=== PATIENT | female | born 1960 | race Hispanic/Latino ===

== ENCOUNTER 2018-11-24 23:54 | Emergency (ER) | payer OTHER ==
[2018-11-25] MEDS ORDERED: DIAZEPAM 5 MG TABLET ONE (00:16)
[2018-11-25] MEDS ORDERED: KETOROLAC TROMETHAMINE 30MG/ML ONE (00:16)
[2018-11-25] MEDS ORDERED: HYDROCODONE/ACETAMINOPHEN 10/325 MG TAB ONE (00:17)
== END 2018-11-25 01:41 | disposition home or self-care (01) ==
LOC: EDH 23:54
DX: S39.012A Strain of muscle, fascia and tendon of lower back, initial encounter (principal); Z72.0 Tobacco use; X50.1XXA Overexertion from prolonged static or awkward postures, initial encounter; Y93.89 Activity, other specified; Y92.89 Other specified places as the place of occurrence of the external cause; Y99.8 Other external cause status
CPT/HCPCS: 96372; 99283; J1885

== ENCOUNTER 2020-09-08 11:23 | Emergency (ER) | payer OTHER, SELFPAY ==
[~2020-09-08] VITALS: Ht 160 cm; Wt 70.3 kg
[2020-09-08 11:25] VITALS: BP 147/68
[2020-09-08 12:12] LABS: BASOPHILS % (AUTO) 0.8 % (0.0-5.0); EOSINOPHILS % (AUTO) 0.8 % (0.0-8.0); HEMATOCRIT 42.3 % (36-48); LYMPHOCYTES % (AUTO) 30.8 % (21.0-51.0); MEAN CORPUSCULAR HEMOGLOBIN 26.4 pg (27.0-33.0); MEAN CORPUSCULAR HGB CONC 32.4 g/dL (32.0-36.0); MEAN CORPUSCULAR VOLUME 81.5 fL (79-99); MONOCYTES % (AUTO) 5.4 % (3.0-13.0); PLATELET COUNT (AUTO) 231 K/uL (130-400); RED BLOOD CELL COUNT(AUTO) 5.19 MIL/uL (4.00-5.50); RED CELL DISTRIBUTION WIDTH 16.3 % (11.0-15.5); WHITE BLOOD COUNT (AUTO) 10.6 K/uL (4.8-10.8)
[2020-09-08 12:22] LABS: CARBON DIOXIDE 31 mmol/L (21-32); CHLORIDE 109 mmol/L (101-111); CREATININE 0.6 mg/dL (0.5-1.5); GLOMERULAR FILTR. RATE CALC 108 mL/min (>60); GLUCOSE,RANDOM 94 mg/dL (70-105); POTASSIUM 5.8 mmol/L (3.5-5.1); SODIUM SERUM 143 mmol/L (136-145); UREA NITROGEN, BLOOD 17 mg/dL (7-18)
[2020-09-08 12:37] LABS: ALANINE AMINOTRANSFERASE 21 U/L (12-78); ALBUMIN 3.5 g/dL (3.5-5.0); ASPARTATE AMINOTRANSFERASE 23 U/L (10-37); BILIRUBIN,TOTAL 0.4 mg/dL (0.2-1.0); CREATINE KINASE, TOTAL 70 U/L (21-232); MYOGLOBIN 32 ng/mL (10-92); TOTAL PROTEIN, SERUM 7.4 g/dL (6.0-8.3); TROPONIN I < 0.04 ng/mL (0.00-0.06)
[2020-09-08 12:55] VITALS: BP 156/57
[2020-09-08 13:00] LABS: APPEARANCE,URINE Turbid (CLEAR); BILIRUBIN,URINE Negative (NEGATIVE); COLOR,URINE Yellow (YELLOW); GLUCOSE, URINE (UA) Negative (NEGATIVE); KETONES,URINE Negative (NEGATIVE); LEUKOCYTE ESTERASE ,URINE Negative (NEGATIVE); NITRATE,URINE Negative (NEGATIVE); OCCULT BLOOD,URINE Negative (NEGATIVE); PROTEIN,URINE Negative (NEGATIVE); UROBILINOGEN,URINE 0.2 mg/dL (0.2-1.0)
[2020-09-08 13:43] LABS: BACTERIA,URINE None Seen /HPF (None Seen); RBC,URINE 0-1 /HPF (0-1); SQUAMOUS EPITHELIAL CELL,UR Few /HPF (0-2); WBC,URINE 0-1 /HPF (0-1)
[2020-09-08 13:44] LABS: AMORPHOUS SEDIMENT,UR Moderate /LPF (None Seen)
[2020-09-08 15:08] VITALS: BP 134/68
[2020-09-08] MEDS ORDERED: 0.9%NACL 1000ML 1,000 ML IV SCH (15:30)
[2020-09-08] MEDS ORDERED: KETOROLAC 60 MG VIAL (30MG/ML) IM ONE (15:30)
[2020-09-08] MEDS ORDERED: KETOROLAC 30MG VIAL (30MG/ML) IV ONE (15:45)
[2020-09-08] MEDS ORDERED: NAPR-1180 PO (15:52)
[2020-09-08] MEDS ORDERED: GABA300S PO (16:04)
[2020-09-08] MEDS ORDERED: ALEN70SO3 PO (16:04)
[2020-09-08 16:21] VITALS: BP 155/66
== END 2020-09-08 16:40 | disposition home or self-care (01) ==
LOC: EDH 11:23
DX: R42 Dizziness and giddiness (principal); T42.6X5A Adverse effect of other antiepileptic and sedative-hypnotic drugs, initial encounter; M81.0 Age-related osteoporosis without current pathological fracture; M19.90 Unspecified osteoarthritis, unspecified site; Y92.89 Other specified places as the place of occurrence of the external cause
CPT/HCPCS: 36415; 80053; 81001; 82550; 83874; 83880; 84484; 85025; 93005; 96361; 96374; 99284; J1885; J7030

== ENCOUNTER 2021-08-02 16:35 | Emergency (ER) | payer OTHER, SELFPAY ==
[~2021-08-02] VITALS: Ht 157.5 cm; Wt 72.6 kg
[~2021-08-02 16:35] MED LIST: ALEN70SO4 PO; GABA300S PO; NAPR-1180 PO
[2021-08-02] MEDS ORDERED: ACETAMINOPHEN 500 MG TABLET ONE (16:40)
[2021-08-02 17:09] VITALS: BP 156/74
[2021-08-02] MEDS ORDERED: IBUP-2070 PO (18:29)
[2021-08-02] MEDS ORDERED: TETANUS/DIPHTHERIA TOXOID [ADULT] 0.5 ML VIAL IM ONE (18:30)
== END 2021-08-02 19:38 | disposition home or self-care (01) ==
LOC: EDH 16:35
DX: S61.011A Laceration without foreign body of right thumb without damage to nail, initial encounter (principal); M25.531 Pain in right wrist; M79.644 Pain in right finger(s); M19.90 Unspecified osteoarthritis, unspecified site; M81.0 Age-related osteoporosis without current pathological fracture; Z79.1 Long term (current) use of non-steroidal anti-inflammatories (NSAID); Z79.899 Other long term (current) drug therapy; Z90.49 Acquired absence of other specified parts of digestive tract; X58.XXXA Exposure to other specified factors, initial encounter; Y93.89 Activity, other specified; Y92.89 Other specified places as the place of occurrence of the external cause; Y99.8 Other external cause status
CPT/HCPCS: 73110; 73130; 90471; 90714

== ENCOUNTER 2022-05-04 12:18 | Emergency (ER) | payer OTHER ==
[~2022-05-04] VITALS: Ht 160 cm; Wt 74.8 kg
[~2022-05-04 12:18] MED LIST changes: +IBUP-2070 PO
[2022-05-04 12:44] LABS: HEMATOCRIT 40.4 % (36-48); MEAN CORPUSCULAR HEMOGLOBIN 25.1 pg (27.0-33.0); MEAN CORPUSCULAR HGB CONC 31.7 g/dL (32.0-36.0); MEAN CORPUSCULAR VOLUME 79.4 fL (79-99); RED BLOOD CELL COUNT(AUTO) 5.09 MIL/uL (4.00-5.50); RED CELL DISTRIBUTION WIDTH 15.8 % (11.0-15.5); WHITE BLOOD COUNT (AUTO) 10.2 K/uL (4.8-10.8)
[2022-05-04 12:55] LABS: CREATININE 0.7 mg/dL (0.5-1.5)
[2022-05-04 13:00] LABS: ALBUMIN 3.5 g/dL (3.5-5.0); TOTAL PROTEIN, SERUM 7.7 g/dL (6.0-8.3)
[2022-05-04] MEDS ORDERED: KETOROLAC 60 MG VIAL (30MG/ML) IM ONE (13:00)
[2022-05-04] MEDS ORDERED: CYCLOBENZAPRINE HCL 10 MG TABLET PO ONE (13:00)
[2022-05-04] MEDS ORDERED: SOLU-MEDROL 125MG VIAL IVP ONE (13:00)
[2022-05-04] MEDS ORDERED: MORPHINE 4 MG SYG IVP ONE (14:30)
[2022-05-04] MEDS ORDERED: ONDANSETRON 4MG INJ IVP ONE (14:30)
[2022-05-04] MEDS ORDERED: CYCL10TA16 PO (15:54)
[2022-05-04] MEDS ORDERED: METH4TAB3 PO (15:54)
[2022-05-04 16:10] VITALS: BP 126/53
== END 2022-05-04 16:09 | disposition home or self-care (01) ==
LOC: EDH 12:18
DX: S39.012A Strain of muscle, fascia and tendon of lower back, initial encounter (principal); Z90.710 Acquired absence of both cervix and uterus; Z79.1 Long term (current) use of non-steroidal anti-inflammatories (NSAID); Z79.899 Other long term (current) drug therapy; X58.XXXA Exposure to other specified factors, initial encounter; Y93.89 Activity, other specified; Y92.89 Other specified places as the place of occurrence of the external cause; Y99.8 Other external cause status
CPT/HCPCS: 99285; 96374; 72131; 96375; 80053; 85027; 36415; 96372; J2930; J2405; J2270; J1885

== ENCOUNTER 2024-04-30 18:12 | Emergency (ER) | payer OTHER, SELFPAY ==
[~2024-04-30] VITALS: Ht 157.5 cm; Wt 76.2 kg
[~2024-04-30 18:12] MED LIST changes: +CYCL10TA16 PO; -GABA300S PO; +GABA300S3 PO; +METH4TAB3 PO
--- NOTE | 2024-04-30 18:23 | ERN ---
ED Note History of Present Illness Stated Complaint: DIZZY Chief Complaint: Dizzy/Light Headed Time Seen by MD: 18:14 Dictation: PATIENT IS A 63-YEAR-OLD FEMALE COMING IN TODAY WHO COMPLAINTS OF HAVING DIZZINESS VERTIGO WORSE WHEN SHE TURNS HER HEAD ONSET WAS APPROXIMATE 2 HOURS PRIOR TO ARRIVAL. SHE STATES SHE HAD BEEN WASHING TV WHEN SHE STOOD UP AND NOTICED THE ROOM WAS SPINNING. SHE DENIES ANY CHEST PAIN BACK PAIN NO HEADACHE. SHE HAS HAD MILD DIZZINESS IN THE PAST BUT STATES NOTHING THIS SEVERE. Allergies: Coded Allergies: No Allergy Information Available (Verified Allergy, Unknown, 09/08/20) No Known Drug Allergies (Unverified Allergy, Unknown, 05/04/22) Home Meds Active Scripts Cyclobenzaprine HCl (Flexeril) 10 Mg Tab, 5 MG PO TID for 3 Days, #9 TAB Prov:RICARDO FINNEY MD 05/04/22 Methylprednisolone (Medrol) 4 Mg Tab.ds.pk, 4 MG PO AD for 6 Days, #1 PACK Prov:RICARDO FINNEY MD 05/04/22 Ibuprofen (Ibuprofen) 600 Mg Tablet, 600 MG PO Q6H PRN for PAIN, #15 TAB Prov:ARLINE WEBB ICT HELP DESK TECHNICIAN 08/02/21 Naproxen (Naprosyn) 500 Mg Tablet, 500 MG PO BIDPC for 7 Days, #14 TAB 0 Refills Prov:ZACK HESS MD 09/08/20 Reported Medications Gabapentin (Gabapentin) 300 Mg/6 Ml Solution, 300 MG PO TID, ML 09/08/20 Alendronate Sodium (Alendronate Sodium) 70 Mg/75 Ml Solution, 70 MG PO QWEEK, ML 09/08/20 Past Medical History Past Medical History: Arthritis Additional Past Medical Hx: OSTEOPOROSIS Surgical History: Hysterectomy, Surgical History Other: OVARIAN TUMOR REMOVED Family History: HTN Social History: Negative, Lives with family History: Not Applicable RN Note Reviewed/Agreed w/PFSH: Yes Review of System Dictation CONSTITUTIONAL: NEGATIVE EXCEPT FOR HPI HEAD/FACE: NEGATIVE EXCEPT FOR HPI EENT: NEGATIVE EXCEPT FOR HPI RESPIRATORY: NEGATIVE EXCEPT FOR HPI GASTROINTESTINAL/ABDOMINAL: NEGATIVE EXCEPT FOR HPI GENITOURINARY: NEGATIVE EXCEPT FOR HPI MUSCULOSKELETAL: NEGATIVE EXCEPT FOR HPI INTEGUMENTARY: NEGATIVE EXCEPT FOR HPI NEUROLOGICAL/PSYCH: NEGATIVE EXCEPT FOR HPI DIZZINESS/VERTIGO HEMATOLOGIC/LYMPHATIC: NEGATIVE EXCEPT FOR HPI ALL SYSTEMS NEGATIVE, EXCEPT NOTED ABOVE. 13 POINT REVIEW OF SYSTEMS ASSESSED AND ALL NEGATIVE EXCEPT FOR ABOVE. Initial Vital Sign VS Vital Signs Date Time Temp Pulse Resp B/P (MAP) Pulse Ox O2 Delivery O2 Flow Rate FiO2 04/30/24 18:18 98.6 54 16 150/67 97 Room Air 0 04/30/24 22:07 21 Physical Exam Dictation VITAL SIGNS REVIEWED GENERAL APPEARANCE: ALERT, ORIENTED X 3, MILD ACUTE DISTRESS, WELL DEVELOPED, NOURISHED. HEAD AND FACE: NON-TRAUMATIC. EYES: PERRL, PINK CONJUNCTIVAS, EYELID NO TRAUMA, ANTERIOR CHAMBER WITH ARCUS SENILIS. LEFT HORIZONTAL NYSTAGMUS EARS: PINNAS INTACT AND NO SIGNS OF TRAUMA OR ERYTHEMA EAR CANALS CLEAR AND NO DISCHARGE TM NO ERYTHEMA NOSE: NO DISCHARGE, NO BLEEDING. OROPHARYNX: MOUTH NORMAL, TONGUE PINK, PHARYNX CLEAR,NO ERYTHEMA, TONSILS NO EXUDATES, NO ABSCESSES NOTED, MUCOUS MEMBRANE MOIST NECK: SUPPLE, NON-TENDER, NO THYROMEGALY, NO MASSES, NO JVD, NO BRUITS BREAST:DEFERRED CHEST:NO TENDERNESS, NO CREPITUS, NO PARADOXICAL MOVEMENT, NO RETRACTIONS LUNGS:CLEAR, WELL-VENTILATED, SYMMETRIC, NO RALES, NO WHEEZING, NO RHONCHI, NO STRIDOR, GOOD BREATH SOUNDS BILATERALLY HEART: REGULAR RATE, REGULAR RHYTHM, NO MURMUR, NO GALLOPS VASCULAR: NO PERIPHERAL EDEMA, ABDOMEN: SOFT, POSITIVE BOWEL SOUNDS, NONDISTENDED, NO GUARDING, NONTENDER, NO REBOUND, NO MASSES NO HEPATOMEGALY, NO SPLENOMEGALY, NO DE LA TORRE'S SIGN, NO HERNIAS. RECTAL: DEFERRED GENITAL: DEFERRED NEUROLOGICAL: NORMAL SPEECH, MOTOR FUNCTION INTACT, SENSORY FUNCTION INTACT NIH IS 0 EXCEPT NYSTAGMUS MUSCULOSKELETAL: NECK NONTENDER, FULL RANGE OF MOTION, BACK NONTENDER, FULL RANGE OF MOTION, EXTREMITIES: NONTENDER, FULL RANGE OF MOTION SKIN: COLOR PINK, DRY, NO TURGOR, NO RASH, NO LACERATIONS, NO ABRASIONS, NO CONTUSIONS. LYMPHATIC: DEFERRED Results (Laboratory/Radiology) Laboratory/Radiology Laboratory Tests Test 04/30/24 18:42 White Blood Count 8.9 K/uL (4.8-10.8) Red Blood Count 4.93 MIL/uL (4.00-5.50) Hemoglobin 13.3 g/dL (12.0-16.0) Hematocrit 40.4 % (36-48) Mean Corpuscular Volume 81.9 fL (79-99) Mean Corpuscular Hemoglobin 27.0 pg (27.0-33.0) Mean Corpuscular Hemoglobin Concent 32.9 g/dL (32.0-36.0) Red Cell Distribution Width 15.8 % (11.0-15.5) H Platelet Count 225 K/uL (130-400) Mean Platelet Volume 10.1 fL (7.5-10.5) Immature Granulocyte % (Auto) 0.1 % (0-1) Neutrophils (%) (Auto) 52.7 % (40.0-77.0) Lymphocytes (%) (Auto) 38.3 % (21.0-51.0) Monocytes (%) (Auto) 6.3 % (3.0-13.0) Eosinophils (%) (Auto) 1.8 % (0.0-8.0) Basophils (%) (Auto) 0.8 % (0.0-5.0) Neutrophils # (Auto) 4.7 K/uL (1.8-7.7) Lymphocytes # (Auto) 3.4 K/uL (1.0-4.8) Monocytes # (Auto) 0.6 K/uL (0.1-1.0) Eosinophils # (Auto) 0.16 K/uL (0.00-0.70) Basophils # (Auto) 0.07 K/uL (0.00-0.20) Absolute Immature Granulocyte (auto 0.01 K/uL (0-1) Nucleated Red Blood Cells 0.0 % (0.0-0.19) Sodium Level 140 mmol/L (136-145) Potassium Level 4.7 mmol/L (3.5-5.1) Chloride Level 105 mmol/L (101-111) Carbon Dioxide Level 33 mmol/L (21-32) H Blood Urea Nitrogen 19 mg/dL (7-18) H Creatinine 0.7 mg/dL (0.5-1.0) Glomerular Filtration Rate Calc 96 mL/min (>90) Random Glucose 95 mg/dL (70-105) Total Calcium 10.3 mg/dL (8.5-10.1) H Troponin I High Sensitivity 44 ng/L (4-50) xam: NONCONTRAST CT BRAIN REASON: VERTIGO ONSET2 HOURS PRIOR TO ARRIVAL. WORSE WHEN SHE TURNS HER. COMPARISON: None. TECHNIQUE: Images are obtained from vertex to the skull base. The exam was performed without IV contrast. FINDINGS: There is normal appearing brain parenchyma. There are no focal mass lesions. There is is no evidence of intracranial hemorrhage or acute stroke. Ventricles and sulci appear normal. Posterior fossa and brainstem structures are unremarkable. Paranasal sinuses and remaining extracranial soft tissues appear normal as well. IMPRESSION: 1. Normal noncontrast CT brain. Labs Reviewed?: Yes EKG Comment: EKG sinus bradycardia/heart rate 51/right bundle branch block nonspecific changes in lateral leads V4 V5 V6 ED Course ED Course Orders Procedure Category Date Status Time Ct Head/Brain W/O CT 04/30/24 Resulted Contrast 18:20 Methylprednisolone PHA 04/30/24 Complete Succ 125mg (Solu-Medr 18:30 Meclizine Hcl 25 Mg PHA 04/30/24 Complete (Antivert 25 Mg) 18:30 Cbc With Differential LAB 04/30/24 Complete 18:20 Troponin I High LAB 04/30/24 Complete Sensitivity 18:20 12 Lead Ekg Tracing- EKG 04/30/24 Complete Technical 18:20 0.9%Nacl 1000ml (Ns PHA 04/30/24 Complete 1000ml) 18:30 Ondansetron 4mg Inj PHA 04/30/24 Complete (Zofran 4mg Inj) 18:30 Basic Metabolic Panel LAB 04/30/24 Complete 18:20 Current Medications Medications (Trade) Dose Ordered Sig/Kanwal Route PRN Reason Start Time Stop Time Status Last Admin Dose Admin Meclizine HCl (ANTIvert 25 mg) 50 mg ONCE ONCE PO 04/30/24 18:30 04/30/24 18:31 DC 04/30/24 21:52 Methylprednisolone Sodium Succinate (Solu-medROL 125MG) 125 mg ONCE ONCE IVP 04/30/24 18:30 04/30/24 18:31 DC 04/30/24 21:52 Ondansetron HCl (zoFRAN 4MG INJ) 4 mg ONCE ONCE IVP 04/30/24 18:30 04/30/24 18:31 DC 04/30/24 21:52 Sodium Chloride 1,000 ml @ 0 mls/hr ONCE ONCE IV 04/30/24 18:30 04/30/24 18:31 DC 04/30/24 21:52 Vital Signs Date Time Temp Pulse Resp B/P (MAP) Pulse Ox O2 Delivery O2 Flow Rate FiO2 04/30/24 22:07 98.4 64 18 152/64 98 Room Air* 0 21 04/30/24 18:18 98.6 54 16 150/67 97 Room Air 0 2240/WORKUP ESSENTIALLY NORMAL CT NEGATIVE EKG AND TROPONIN NEGATIVE PATIENT STATES SHE FEELS MARKEDLY IMPROVED AFTER NORMAL SALINE/SOLU-MEDROL/MECLIZINE AND ZOFRAN. GAIT IS STEADY TO BATHROOM NIH IS 0 DAUGHTER AT BEDSIDE AND EXPLAINED TO ALL MY FINDINGS AND SYRIAC AND SHE INTERPRETED FOR MOTHER. Medical Decision Making MDM MDM: DIFFERENTIAL DIAGNOSIS: ACS/AMI/CENTRAL NERVOUS SYSTEM LESION/VERTIGO/LABYRINTHITIS/ELECTROLYTE IMBALANCE/DEHYDRATION RATIONALE: TESTS CONSIDERED AND ORDERED SECONDARY TO SHARED DECISION MAKING INCLUDE: EKG/LABS/RADIOLOGY PREVIOUS OUTSIDE RECORDS REVIEWED: OLD ER VISITS. RISK OF COMPLICATION AND/OR MORBIDITY OR MORTALITY OF PATIENT MANAGEMENT: NONE MEDICATIONS-PER MEDICATION RECONCILIATION NEED FOR HOSPITALIZATION: PATIENT DOES NOT MEET CRITERIA FOR HOSPITALIZATION. NO NEED FOR EMERGENCY MAJOR/MINOR SURGERY: NO THERE ARE NO SOCIAL CONCERNS WITH THIS PATIENT. PRESCRIPTION DRUG MANAGEMENT MEDROL DOSEPAK/MECLIZINE PRESCRIPTIONS WILL INCLUDE SYMPTOMATIC CARE PATIENT'S PRIOR EXTERNAL MEDICAL RECORDS FROM OTHER ER VISITS WERE REVIEWED BY ME INDICATED. PRIOR TESTING AND RESULTS FROM PREVIOUS VISITS WERE REVIEWED. PRIOR TESTS WERE TAKEN INTO ACCOUNT WITH MEDICAL DECISION MAKING AND RESOURCE UT ILIZATION, INDEPENDENT HISTORIAN/HISTORIANS WERE USED TO OBTAIN COMPLETE MEDICAL HISTORY. I INDEPENDENTLY INTERPRETED THE TEST THAT WERE PERFORMED, RESULTS WERE REVIEWED BY ME AND CONSIDERED FINDINGS ON RADIOLOGY IF ORDERED. MEDICAL MANAGEMENT AND EXAMINATION INTERPRETATION DISCUSSIONS WERE HAD BY ME WITH OTHER QUALIFIED HEALTHCARE PROFESSIONALS INDICATED FOR THE PATIENT'S CAR E. DX & DISP Disposition: Discharge Departure Impression: Primary Impression: Benign positional vertigo Additional Impressions: Acute viral labyrinthitis of left ear, Dehydration Condition: Stable Scripts Methylprednisolone (Medrol) 4 Mg Tab.ds.pk 1 TAB PO AD for 6 Days, #21 TAB 0 Refills 6 on day 1 then reduce by one tablet daily until gone Prov: MARQUITA GROSSMAN POWDERED SUGAR PULVERIZER OPERATOR 04/30/24 Meclizine HCl (Meclizine HCl) 25 Mg Tablet 25 MG PO TID for vertigo, #30 TAB 0 Refills Prov: MARQUITA GROSSMAN POWDERED SUGAR PULVERIZER OPERATOR 04/30/24 Additional Instructions: FOLLOW-UP WITH PRIMARY CARE PROVIDER IN 1 TO 2 DAYS. TAKE MEDICATIONS DIRECTED HERE IN THE EMERGENCY ROOM. OKAY TO CONTINUE HOME MEDICATIONS UNLESS OTHERWISE DISCUSSED DURING YOUR VISIT IN THE EMERGENCY ROOM TODAY. RETURN TO YOUR NEAREST EMERGENCY ROOM IF SYMPTOMS WORSEN OR IF THERE IS NO IMPROVEMENT. CALL 911 IF YOU NEED IMMEDIATE ASSISTANCE. TAKE TYLENOL OR MOTRIN [id number] NEEDED AND IF NO CONTRAINDICATIONS ARE PRESENT. INCREASE ORAL HYDRATION. A WOUND CULTURE OR URINE CULTURE WAS ORDERED HERE IN THE EMERGENCY ROOM DEPARTMENT PLEASE FOLLOW-UP WITH PRIMARY CARE PROVIDER AND ADVISE THEM TO GET REPEAT PORTS FROM OUR FACILITY. IF YOU HAD ANY MORTEZA WRAP/SPLINTS THAT WERE APPLIED HERE, PLEASE DO NOT REMOVE THEM UNTIL YOU SEE YOUR PRIMARY CARE OR SPECIALTY. TAKE MECLIZINE EVERY8 HOURS FOR THE NEXT TWO DAYS. TAKE MEDROL DOSEPAK DIRECTED UNTIL GONE. , SEE YOUR PRIMARY CARE DOCTOR FOR FOLLOW UP Referrals: SELF,REFERRAL (PCP) Time of Disposition: 22:41 I have reviewed the case, and I agree with, Diagnosis and Plan MARQUITA GROSSMAN NP Apr 30, 2024 18:23
--- NOTE | 2024-04-30 18:40 | EKG ---
[facility] Test Date: 2024-04-30 Test Time: 18:37:18 Pat Name: LAURA GRAVES Department: ED Room: Gender: F Sales Communications Manager: [id number] : [id number] Requested By: MARQUITA GROSSMAN Order Number: [id number] Reading MD: Andrew Bullock Measurements Intervals [place] Rate: 51 P: 88 [place]: 158 QRS: -29 QRSD: 138 T: 71 QT: 439 QTc: 406 Interpretive Statements Sinus rhythm Right bundle branch block LVH with secondary repolarization abnormality Lateral infarct, old Compared to ECG 09/08/2020 12:57:18 Early repolarization now present Sinus bradycardia no longer present Left-axis deviation no longer present Myocardial infarct finding still present Electronically Signed On 05-01-2024 06:58:16 AUDIO VIDEO TECH by Andrew Bullock Please click the below link to view image of tracing.
--- NOTE | 2024-04-30 18:44 | HMCIMG ---
Exam: NONCONTRAST CT BRAIN REASON: VERTIGO ONSET2 HOURS PRIOR TO ARRIVAL. WORSE WHEN SHE TURNS HER. COMPARISON: None. TECHNIQUE: Images are obtained from vertex to the skull base. The exam was performed without IV contrast. FINDINGS: There is normal appearing brain parenchyma. There are no focal mass lesions. There is is no evidence of intracranial hemorrhage or acute stroke. Ventricles and sulci appear normal. Posterior fossa and brainstem structures are unremarkable. Paranasal sinuses and remaining extracranial soft tissues appear normal as well. IMPRESSION: 1. Normal noncontrast CT brain. CT was performed with one or more following dose reduction techniques: automated exposure control, adjustment of the mA and kv according to patient's size, or use of a iterative reconstruction technique.
[2024-04-30 18:48] LABS: BASOPHILS # (AUTO) 0.07 K/uL (0.00-0.20); BASOPHILS % (AUTO) 0.8 % (0.0-5.0); EOSINOPHILS # (AUTO) 0.16 K/uL (0.00-0.70); EOSINOPHILS % (AUTO) 1.8 % (0.0-8.0); HEMATOCRIT 40.4 % (36-48); IMMATURE GRANULOCYTE ABSOLUTE 0.01 K/uL (0-1); LYMPHOCYTES # (AUTO) 3.4 K/uL (1.0-4.8); LYMPHOCYTES % (AUTO) 38.3 % (21.0-51.0); MEAN CORPUSCULAR HGB CONC 32.9 g/dL (32.0-36.0); MEAN CORPUSCULAR VOLUME 81.9 fL (79-99); MONOCYTES # (AUTO) 0.6 K/uL (0.1-1.0); MONOCYTES % (AUTO) 6.3 % (3.0-13.0); NEUTROPHILS # (AUTO) 4.7 K/uL (1.8-7.7); NEUTROPHILS % (AUTO) 52.7 % (40.0-77.0); PLATELET COUNT (AUTO) 225 K/uL (130-400); RED BLOOD CELL COUNT(AUTO) 4.93 MIL/uL (4.00-5.50); RED CELL DISTRIBUTION WIDTH 15.8 % (11.0-15.5); WHITE BLOOD COUNT (AUTO) 8.9 K/uL (4.8-10.8)
[2024-04-30 18:55] LABS: CREATININE 0.7 mg/dL (0.5-1.0); POTASSIUM 4.7 mmol/L (3.5-5.1)
[2024-04-30] MEDS: mecliZINE HCL 25 MG TABLET PO ONE (21:52)
[2024-04-30] MEDS: 0.9%NACL 1000ML 1,000 ML IV ONE (21:52)
[2024-04-30] MEDS: Solu-medROL 125MG VIAL IVP ONE (21:52)
[2024-04-30] MEDS: ondanSETRON 4MG INJ IVP ONE (21:52)
[2024-04-30 22:07] VITALS: BP 152/64; PULSE 64; RESP 18; TEMP 98.4; O2SAT 98
[2024-04-30] MEDS ORDERED: MECL-302 PO (22:43)
[2024-04-30] MEDS ORDERED: METH4TAB3 PO (22:43)
== END 2024-04-30 22:53 | disposition home or self-care (01) ==
LOC: EDH 18:12
DX: H81.10 Benign paroxysmal vertigo, unspecified ear (principal); H83.02 Labyrinthitis, left ear; E86.0 Dehydration; M19.90 Unspecified osteoarthritis, unspecified site; Z79.899 Other long term (current) drug therapy; Z90.710 Acquired absence of both cervix and uterus
CPT/HCPCS: 99285; 96374; 70450; 96375; 84484; 80048; 85025; 36415; 93005; J2919; J2405